=== PATIENT | male | born 1990 | race American Indian/Alaskan Native ===

== ENCOUNTER 2019-07-18 23:15 | Emergency (ER) | payer SELFPAY ==
--- NOTE | 2019-07-18 23:48 | Emergency Department Report ---
ED Back Pain/Injury HPI - General Chief Complaint: Extremity Injury, Upper Stated Complaint: RT WRIST INJURY Time Seen by Provider: 07/18/19 23:45 Source: patient Limitations: No Limitations - Related Data Previous Rx's Medication Instructions Recorded Last Taken Type Ibuprofen [Motrin] 800 mg PO Q8HR PRN #30 tablet 07/19/19 Unknown Rx Allergies Allergy/AdvReac Type Severity Reaction Status Date / Time No Known Allergies Allergy Unverified 07/18/19 23:16 ED Review of Systems ROS: Stated complaint: RT WRIST INJURY Other details as noted in HPI Comment: All other systems reviewed and negative ED Past Medical Hx - Past Medical History Medical history: no medical history Surgical history: other (ARM) ED Back Pain Physical Exam - Exam General: Vital signs noted. No distress. Alert and acting appropriately. Back/Abdomen: No Abdominal Tenderness Neuro: Yes Normal Sensation, Yes Normal DTR's, Yes Normal Gait, No Motor Weakness ED Course Vital Signs 07/18/19 23:16 Temperature 98.1 F Pulse Rate 98 H Respiratory 18 Rate Blood Pressure 137/85 O2 Sat by Pulse 96 Oximetry ED Medical Decision Making - Radiology Data Radiology results: report reviewed, image reviewed - Differential Diagnosis RO FX Critical care attestation.: If time is entered above; I have spent that time in minutes in the direct care of this critically ill patient, excluding procedure time. ED Disposition Clinical Impression: Ulnar fracture, Contusion Disposition: TO HOME OR SELFCARE Is pt being admited?: No Does the pt Need Aspirin: No Condition: Stable Instructions: Wrist Fracture in Adults (ED) Additional Instructions: ICE REST SPLINT ELEVATE MED ORDERED TONIGHT FOLLOW UP [place] WITH DR SHELBY REFERRAL BELOW Referrals: MONSE SHELBY MD [Staff Physician] - 3-5 Days Forms: Work/School Release Form(ED) Time of Disposition: 01:21
[2019-07-19] MEDS ORDERED: IBUPROFEN PO ONE (00:26)
--- NOTE | 2019-07-19 00:55 | XRay Report ---
RIGHT WRIST 3 VIEWS. INDICATION / CLINICAL INFORMATION: right wrist pain/injury COMPARISON: None available. FINDINGS: BONES / JOINT(S): No acute fracture or subluxation. Previous avulsion at the ulnar styloid process an d plate and screw fixation fifth metacarpal. No significant arthritis. SOFT TISSUES: No significant abnormality. ADDITIONAL FINDINGS: None. Signer Name: Isak Segura MD Signed: 07/19/2019 12:51 AM Workstation Name: [id number]
[2019-07-19] MEDS ORDERED: NORCO 5/325 PO ONE (01:17)
[2019-07-19 02:39] VITALS: BP 132/84
== END 2019-07-19 02:38 | disposition home or self-care (01) ==
LOC: ED 23:15
DX: S52.201A Unspecified fracture of shaft of right ulna, initial encounter for closed fracture (principal); X58.XXXA Exposure to other specified factors, initial encounter; Y93.89 Activity, other specified; Y92.89 Other specified places as the place of occurrence of the external cause; Y99.8 Other external cause status